=== PATIENT | male | born 1955 | race Caucasian/White ===

== ENCOUNTER 2022-06-26 07:30 | Outpatient (RCR) | payer MEDICARE, OTHER, SELFPAY | END 2023-06-17 23:59 | disposition home or self-care (01) | PROVIDERS: PCP Family Medicine; Visit Provider Family Medicine | DX: M77.11 Lateral epicondylitis, right elbow (principal); Z51.89 Encounter for other specified aftercare | CPT/HCPCS: 97035; 97140 ==

== ENCOUNTER 2023-02-11 07:30 | Outpatient (RCR) | payer MEDICARE, MEDICAID, SELFPAY | END 2023-03-24 14:40 | disposition home or self-care (01) | PROVIDERS: PCP Family Medicine; Visit Provider Orthopaedic Surgery | DX: M25.512 Pain in left shoulder (principal); Z51.89 Encounter for other specified aftercare | CPT/HCPCS: 97110; 97140; 97161 ==

== ENCOUNTER 2023-03-23 08:34 | Outpatient (CLI) | payer MEDICARE, SELFPAY | END 2023-03-23 08:35 | disposition home or self-care (01) | LOC: NFLDREF 22:11 | PROVIDERS: PCP Family Medicine; Referring Provider Family Medicine; Visit Provider Family Medicine | DX: I10 Essential (primary) hypertension (principal); E55.9 Vitamin D deficiency, unspecified; Z12.5 Encounter for screening for malignant neoplasm of prostate; Z13.6 Encounter for screening for cardiovascular disorders | CPT/HCPCS: 80048; 80061; 82306; 82652; 84153 ==

== ENCOUNTER 2024-02-28 09:30 | Emergency (ER) | payer MEDICARE, OTHER, SELFPAY ==
[2024-02-28 09:37] VITALS: BP 136/94; PULSE 66; RESP 18; TEMP 36.8; O2SAT 98; BMI 31.8
--- NOTE | 2024-02-28 10:17 | US_ITS ---
Patient: SU HA Facility:?[facility] Patient ID:?[id number] Site Patient ID:?[id number]. Site :?[id number] Study:?US-Abdomen RUQ-02/28/2024 10:51:25 AM Ordering Physician:ROSEANN HILL Final Report: INDICATION: Right upper quadrant abdomen pain TECHNIQUE: Ultrasound abdomen limited. Sonographic images of the right upper quadrant were obtained using betancur-scale and color Doppler images. COMPARISON: None FINDINGS: Liver: Diffusely increased in echogenicity without focal lesion. Gallbladder: No stones or sludge. Normal wall thickness. No pericholecystic fluid. Common bile duct: 4 mm. Pancreas: Normal. Right kidney: Normal in size. Normal echotexture and cortex. No masses, stones, or hydronephrosis. Vasculature: Proximal abdominal aorta and IVC are normal. IMPRESSION: 1. No evidence of cholelithiasis or cholecystitis. 2. Moderate hepatic steatosis. Dictated by Giovani Goldberg MD @ 02/28/2024 11:00:58 AM Signed by:?Giovani Goldberg MD @02/28/2024 11:00:58 AM (Electronic Signature)
--- NOTE | 2024-02-28 10:44 | ED.GENADULT ---
HPI - General Adult General Date Seen: 02/28/24 Chief complaint: Chest Pain Stated complaint: upper right chest pain Time Seen by Provider: 02/28/24 09:50 Source: patient, RN notes reviewed and old records reviewed Mode of arrival: ambulatory Limitations: no limitations History of Present Illness HPI narrative: Patient is a 68-year-old male with underlying medical history of obesity and high blood pressure as well as gastroesophageal reflux who presents with right lower chest/right upper quadrant pain which started on Wednesday. He says it has been on and off to some degree kind of waxing and waning but it has never been completely gone. He does feel like it hurts more when he lays on the right side also hurts more with eating. He has not had any nausea or vomiting, appetite has otherwise been normal. No constipation, diarrhea, black or bloody stools. He has been having trouble for the past few weeks with what he describes as ?dermatitis, has been seeing someone at [place] for that and was prescribed hydroxyzine as well as topical products which he says worked well but now he has a rash in his chest, he is wondering if this could all be celiac as he does have a family member who has been diagnosed with celiac. He denies any pleuritic pain, no shortness of breath, cough. No fevers. History of kidney stones but this does not feel similar. Related Data Home Medications Medication Instructions Recorded Confirmed clobetasol 0.05 % scalp solution topical 02/28/24 hydroxyzine HCl 25 mg tablet 25 mg PO QPM 02/28/24 02/28/24 ketoconazole 2 % shampoo 1 applic topical 3XW 02/28/24 02/28/24 omeprazole magnesium 10 mg oral 10 mg PO DAILY 02/28/24 02/28/24 suspension,delayed release (Prilosec) tacrolimus 0.1 % topical ointment topical BID 02/28/24 triamcinolone acetonide 0.1 % topical 02/28/24 topical ointment Previous Rx's Medication Instructions Recorded losartan 25 mg tablet 25 mg PO QDAY #90 tabs 02/02/24 Allergies Allergy/AdvReac Type Severity Reaction Status Date / Time lisinopril Allergy Mild Cough Verified 02/28/24 09:42 Review of Systems Status of ROS: Reports: 10 or more systems reviewed and unremarkable except as noted in History and below [facility] Medical History History of renal calculi ?Z87.442 - Personal history of urinary calculi (ICD-10) History of pleurisy ?Z87.09 - Personal history of other diseases of the respiratory system (ICD-10) History of Helicobacter pylori infection ?Z86.19 - Personal history of other infectious and parasitic diseases (ICD-10) History of echocardiography ?Z92.89 - Personal history of other medical treatment (ICD-10) Surgical History S/P nasal surgery ?Z98.890 - Other specified postprocedural states (ICD-10) History of hernia repair ?Z98.890 - Other specified postprocedural states (ICD-10) ?Z87.19 - Personal history of other diseases of the digestive system (ICD-10) History of cystoscopy ?Z98.890 - Other specified postprocedural states (ICD-10) History of colonoscopy ?Z98.890 - Other specified postprocedural states (ICD-10) Social History Smoking Status: Never smoker Do you use any of these nicotine containing products: None How often do you have a drink containing alcohol: never How often do you have six or more drinks on one occasion: Never AUDIT-C Alcohol total score: 0 Non-prescribed substance use: denies use Little interest or pleasure in doing things: not at all Feeling down, depressed, or hopeless: several days Exam Narrative: Exam Narrative: Vital signs as noted above. In general, an alert, well-appearing patient. Looks comfortable, breathing easily. Head: Normocephalic, atraumatic. Eyes: Pupils are equal reactive. Extraocular movements are full. Conjunctivae are normal. ENT: Mucous membranes are moist. Neck: Supple without lymphadenopathy. Heart: Regular rate and rhythm. No murmur or rub. Lungs: Clear bilaterally. No increased work of breathing, crackles or wheezes. Abdomen: Protuberant, soft. Mild right upper quadrant tenderness without rebound guarding or rigidity. Negative Rai sign. Abdomen otherwise nontender. Extremities: Well perfused. No edema. No calf tenderness. Pulses intact. Neurologic: Patient is alert and oriented to person and place. Speech is fluent. Face is symmetric. Moves all extremities equally. Affect: Normal. Skin: Warm and dry. Well perfused. Const: Vital Signs, click to edit/add: Vital Signs - 24 hr 02/28/24 09:37 02/28/24 11:47 Temperature 98.2 F Pulse Rate [Right Pulse Oximeter] 66 58 L Respiratory Rate 18 18 Blood Pressure [Ri ght Upper Arm] 136/94 H 147/92 H Pulse Oximetry 98 93 Oxygen Delivery Me thod Room Air Room Air Documenting provider has reviewed patient's vital signs: yes Course Course ED Course: Patient presents with mild right upper quadrant pain of a couple days duration without associated symptoms, fairly benign exam. Diagnostic considerations include biliary colic or cholecystitis, pancreatitis, hepatitis, pneumonia, pleural effusion, pulmonary embolism, angina or acute coronary syndrome among others. Overall, my clinical suspicion of most of these is relatively low. I did look with the bedside ultrasound, did not see evidence of gallbladder wall thickening or obvious gallstones. Will go ahead and get a formal ultrasound, labs to include troponin and D-dimer, chest x-ray. Labs are unremarkable, white blood cell count is normal, hemoglobin 15.7. Metabolic panel and LFTs notable only for mild elevations in the AST and ALT of 50 and 78 respectively. Alk-phos and bilirubin are normal. CRP is less than 0.5. Lipase is 132, point of care troponin 0. D-dimer normal. He did have an EKG on arrival which showed sinus bradycardia, ventricular rate of 52. No acute ST segment changes, normal T-waves. Chest x-ray by my review was negative. Final radiology read likewise negative. He had a formal right upper quadrant ultrasound, he has fatty liver but no other findings. Gallbladder looks normal. I have discussed all this with him. At this time I do not have a clear explanation for his pain. His exam is not concerning, evaluation here is all reassuring. Discussed that if symptoms are persistent it certainly would be reasonable to pursue evaluation for celiac, HIDA scan may also be reasonable. He has an appointment on the with primary care for recheck and this can be discussed at his visit. If he has acute worsening at any point come back to the ER. Vital Signs Vital signs: Initial Vital Signs Temperature 98.2 F 02/28/24 09:37 Temperature Source Temporal Artery Scan 02/28/24 09:37 Pulse Rate 66 02/28/24 09:37 Pulse Rhythm Regular 02/28/24 09:37 Respiratory Rate 18 02/28/24 09:37 Blood Pressure 136/94 H 02/28/24 09:37 Blood Pressure Mean 108 H 02/28/24 09:37 Blood Pressure Position Sitting 02/28/24 09:37 Pulse Oximetry 98 02/28/24 09:37 Oxygen Delivery Method Room Air 02/28/24 09:37 Vital Signs Temperature 98.2 F 02/28/24 09:37 Pulse Rate 66 02/28/24 09:37 Respiratory Rate 18 02/28/24 09:37 Blood Pressure 136/94 H 02/28/24 09:37 Pulse Oximetry 98 02/28/24 09:37 Oxygen Delivery Method Room Air 02/28/24 09:37 Temperature 98.2 F 02/28/24 09:37 Pulse Rate 58 L 02/28/24 11:47 Respiratory Rate 18 02/28/24 11:47 Blood Pressure 147/92 H 02/28/24 11:47 Pulse Oximetry 93 02/28/24 11:47 Oxygen Delivery Method Room Air 02/28/24 11:47 Medical Decision Making Lab Data Labs: Lab Results 02/28/24 02/28/24 02/28/24 Range/Units 10:17 10:57 11:12 WBC 5.87 (4.50-11.00) K/uL RBC 5.38 (4.30-5.90) m/uL Hgb 15.7 (13.5-17.5) gm/dL Hct 47.4 (37.0-53.0) % MCV 88 (80-100) fL MCH 29 (26-34) pg MCHC 33 (32-36) gm/dL RDW Coeff of [place] 12.0 (11.5-15.5) % Plt Count 181 (140-440) K/uL Neut % (Auto) 63.2 (42.0-72.0) % Lymph % (Auto) 22.1 (20-44) % [place] % (Auto) 9.4 (0.0-11.0) % Eos % (Auto) 4.6 (0.0-7.0) % Baso % (Auto) 0.5 (0.0-3.0) % Neut # (Auto) 3.71 (1.7-7.0) K/uL Lymph # (Auto) 1.30 (0.90-2.90) K/uL [place] # (Auto) 0.60 (0.00-0.90) K/UL Eos # (Auto) 0.27 (0.00-0.50) K/uL Baso # (Auto) 0.03 (0.00-0.30) K/uL Abs Immat Gran (auto) 0.01 (0.00-0.30) K/uL Imm/Tot Granulo (auto) 0.2 % D-Dimer Quant (PE/DVT) 0.39 (0.00-0.50) ug/ml Sodium 139 (135-149) mmol/L Potassium 4.5 (3.6-5.1) mmol/L Chloride 105 (96-114) mmol/L Carbon Dioxide 28 (20-32) mmol/L Anion Gap 6 L (7-15) mEq/L BUN 17 (7-30) mg/dL Creatinine 0.9 (0.5-1.5) mg/dL Estimated Creat Clear 60.02 Estimated GFR 94 ml/min Glucose 83 (60-115) mg/dL Calcium 9.6 (8.4-10.6) mg/dL Total Bilirubin 1.0 (0.1-1.5) mg/dL Direct Bilirubin 0.1 (0.0-0.5) mg/dL AST 50 H (12-35) U/L ALT 78 H (4-50) U/L Alkaline Phosphatase 77 (40-150) U/L C-Reactive Protein < 0.5 L (0.5-1.0) mg/dL Total Protein 8.6 H (6.0-8.3) g/dL Albumin 4.8 (3.3-5.0) g/dL Lipase 132 (23-300) U/L POC Troponin I 0.00 L (0.01-0.04) ng/ml Discharge Plan Discharge Clinical Impression: Abdominal pain, RUQ Patient Disposition: Home, Self-Care Condition: Stable Instructions: Abdominal Pain (ED) Additional Instructions: Your evaluation today does not reveal any evidence of obvious gallbladder disease, pancreatitis, blood clots, or other suspicious findings. Cause of your symptoms is unclear at this time. Return any time for severe pain, new symptoms such as high fevers, vomiting etcetera. Follow-up as planned with Dr. Smith on the . Consider celiac screening and HIDA scan if symptoms are persistent. Prescriptions: No Action ketoconazole 2 % shampoo 1 applic topical 3XW tacrolimus 0.1 % ointment topical BID triamcinolone acetonide 0.1 % ointment topical hydroxyzine HCl 25 mg tablet 25 mg PO QPM clobetasol 0.05 % solution topical Prilosec 10 mg susp,delayed release for recon 10 mg PO DAILY losartan 25 mg tablet 25 mg PO QDAY Qty: 90 0RF Follow Up/Referrals: César Smith MD [Primary Care Provider] - Stand Alone Forms: [employer] Info Instructions
[2024-02-28 11:10] LABS: Basophils Absolute Auto 0.03 K/uL (0.00-0.30); Basophils Percent Auto 0.5 % (0.0-3.0); Eosinophils Absolute Auto 0.27 K/uL (0.00-0.50); Eosinophils Percent Auto 4.6 % (0.0-7.0); Hematocrit 47.4 % (37.0-53.0); Hemoglobin* 15.7 gm/dL (13.5-17.5); Immature Granulocytes Abs Auto 0.01 K/uL (0.00-0.30); Immature Granulocytes Pct Auto 0.2 %; Lymphocytes Percent Auto 22.1 % (20-44); Mean Corpuscular HGB Conc 33 gm/dL (32-36); Mean Corpuscular Hemoglobin 29 pg (26-34); Mean Corpuscular Volume 88 fL (80-100); Monocytes Percent Auto 9.4 % (0.0-11.0); Neutrophils Absolute Auto 3.71 K/uL (1.7-7.0); Neutrophils Percent Auto 63.2 % (42.0-72.0); Platelet Count* 181 K/uL (140-440); Red Blood Count 5.38 m/uL (4.30-5.90); White Blood Count* 5.87 K/uL (4.50-11.00)
[2024-02-28 11:15] LABS: Slide Review Reflex No
[2024-02-28 11:23] LABS: Chloride* 105 mmol/L (96-114)
[2024-02-28 11:24] LABS: Albumin* 4.8 g/dL (3.3-5.0); Potassium* 4.5 mmol/L (3.6-5.1); Sodium* 139 mmol/L (135-149)
[2024-02-28 11:26] LABS: Creatinine* 0.9 mg/dL (0.5-1.5); Est. Creatinine Clearance* 60.02; Estimated Glomerular Filt Rate 94 ml/min
[2024-02-28 11:27] LABS: Alkaline Phosphatase* 77 U/L (40-150); Anion Gap 6 mEq/L (7-15); Aspartate Amino Transferase* 50 U/L (12-35); Bilirubin Direct* 0.1 mg/dL (0.0-0.5); Blood Urea Nitrogen* 17 mg/dL (7-30); Carbon Dioxide* 28 mmol/L (20-32); Glucose* 83 mg/dL (60-115); Lipase* 132 U/L (23-300); Total Protein* 8.6 g/dL (6.0-8.3)
[2024-02-28 11:28] LABS: Alanine Aminotransferase* 78 U/L (4-50); Calcium* 9.6 mg/dL (8.4-10.6)
[2024-02-28 11:44] LABS: D Dimer Quantitative* 0.39 ug/ml (0.00-0.50)
[2024-02-28 11:45] LABS: C Reactive Protein* < 0.5 mg/dL (0.5-1.0)
[2024-02-28 11:47] VITALS: BP 147/92; PULSE 58; RESP 18; O2SAT 93
--- NOTE | 2024-02-28 11:52 | XR_ITS ---
Patient: SU HA Facility:?[facility] Patient ID:?[id number] Site Patient ID:?[id number]. Site :?[id number] Study:?XRay-Chest PORTABLE-02/28/2024 12:09:27 PM Ordering Physician:WINIFRED Final Report: INDICATION: Right upper quadrant pain. TECHNIQUE: Chest 1 views. COMPARISON: None. FINDINGS: Cardiovascular and mediastinum: Heart size and vasculature are normal in caliber and appearance. Lungs and pleural spaces: Lungs are clear. No sign of infiltrate or mass. No sign of pleural effusion. No pneumothorax. Bones and soft tissues: No significant findings. IMPRESSION: No acute or significant findings. Dictated by Roel Holm MD @ 02/28/2024 12:19:45 PM Signed by:?Roel Holm MD @02/28/2024 12:19:45 PM (Electronic Signature)
== END 2024-02-28 12:31 | disposition home or self-care (01) ==
PROVIDERS: Emergency Provider Emergency Medicine; PCP Family Medicine
DX: R10.11 Right upper quadrant pain (principal)
CPT/HCPCS: 36415; 71045; 76705; 80048; 80076; 83690; 84484; 85025; 85379; 86140; 93005; 99284; 99285

== ENCOUNTER 2024-03-30 08:20 | Outpatient (CLI) | payer MEDICARE, OTHER, SELFPAY | END 2024-03-30 08:21 | disposition home or self-care (01) | LOC: NFLDREF 03-31 05:38 | PROVIDERS: PCP Family Medicine; Referring Provider Family Medicine; Visit Provider Family Medicine | DX: E78.5 Hyperlipidemia, unspecified (principal); E55.9 Vitamin D deficiency, unspecified; I10 Essential (primary) hypertension | CPT/HCPCS: 80053; 80061; 82306 ==

== ENCOUNTER 2025-04-17 08:22 | Outpatient (CLI) | payer MEDICARE, OTHER, SELFPAY | END 2025-04-17 08:23 | disposition home or self-care (01) | LOC: NFLDREF 04-25 01:33 | PROVIDERS: PCP Family Medicine; Referring Provider Family Medicine; Visit Provider Family Medicine | DX: E78.5 Hyperlipidemia, unspecified (principal) | CPT/HCPCS: 80053; 80061 ==

== ENCOUNTER 2025-04-24 11:41 | Outpatient (CLI) | payer MEDICARE, OTHER, SELFPAY ==
--- NOTE | 2025-04-24 12:00 | CRLHL7_ITS ---
For Patients: As a result of the 21st Century Cures Act, medical imaging exams and procedure reports are released immediately into your electronic medical record. You may view this report before your referring provider. If you have questions, please contact your health care provider. INDICATION: 69-year-old man with history of abdominal pain. TECHNIQUE: 8.0 MCi Tc 99m Mebrofenin were administered intravenously and serial static images were obtained over the anterior abdomen over 60 minutes, demonstrating radiotracer uptake within the gallbladder and demonstrating tracer exiting into the small bowel. A lateral image was obtained at 50 minutes. Subsequently, 1.6 Micrograms cholecystokinin was administered intravenously and the anterior abdomen was serially imaged with static views for another 30 minutes. COMPARISON: None FINDINGS: Initial 60 minutes images: There is normal radionuclide activity in the liver, common bile duct, gallbladder and small bowel. There is no evidence for cystic or common duct obstruction or intrinsic liver disease. After administration of cholecystokinin, minimal tracer is demonstrated exiting the gallbladder into the common bile duct and small bowel, with substantial residual tracer in the gallbladder. The gallbladder ejection fraction measures 25 %. Normal range for GB EF: Equal to or greater than 35%. IMPRESSION: 1. No evidence of cystic duct obstruction to support acute cholecystitis. No evidence of common bile duct obstruction. 2. Gallbladder ejection fraction measures 25 %, below normal limits. Findings are nonspecific, but can be seen with gallbladder dysfunction. Dictated by Radames Alejandre MD @ 04/24/2025 3:10:24 PM (Electronically Signed)
== END 2025-04-24 11:42 | disposition home or self-care (01) ==
PROVIDERS: PCP Family Medicine; Visit Provider Family Medicine
DX: R10.11 Right upper quadrant pain (principal)
CPT/HCPCS: 78227; A9537; J2805

== ENCOUNTER 2025-05-07 06:13 | Day surgery (SDC) | payer MEDICARE, OTHER, SELFPAY ==
[2025-05-07] VITALS (12 sets, daily range): BP systolic 108–132; BP diastolic 67–81; PULSE 39–56; RESP 12–18; TEMP 36.2–36.4; O2SAT 96–100; BMI 30.7
[2025-05-07] MEDS: SODIUM CHLORIDE 0.9 % (FLUSH) 10 ML SYRINGE IVF (06:40)
[2025-05-07] MEDS: LACTATED RINGERS 1000 ML 1,000 ML 100 ML IV (06:40)
--- NOTE | 2025-05-07 07:33 | W.PM.H&PU ---
History & Physical Update History & Physical Update H&P Reviewed and patient assessed: No changes noted
[2025-05-07] MEDS: CEFAZOLIN 1 GM inj IVP (07:40)
[2025-05-07] MEDS: BUPIVACAINE 0.25% 30 ML INJECTION (08:25)
--- NOTE | 2025-05-07 08:30 | PM.GSPRC ---
Operative Note Date of procedure: 05/07/25 Pre-op diagnosis: Biliary dyskinesia Post-op diagnosis: Same Type of Procedure: Laparoscopic cholecystectomy Indications: The patient is a 69-year-old male who presented to clinic with increasing episodes of right upper quadrant pain. Workup revealed no evidence of gallstones, however he did have a HIDA scan with a decreased ejection fraction of 25%. We discussed options for management and I recommended cholecystectomy. After discussion of risks, benefits and recovery, he agreed to proceed. Procedure Description: After discussing the risks and benefits of the procedure, the patient signed informed consent.? The operative site was marked and the patient was brought to the operating room and placed on the operating table in supine position.? Care was taken to pad the patient's pressure points.?? The patient was then intubated by anesthesia.?? The operative site was then prepped and draped in the usual sterile fashion.? A time-out was then performed. Entrance to the abdomen was gained via a 5 mm Visiport in the left upper quadrant. The abdomen was insufflated and briefly surveyed for signs of injury. There was none. A 10 mm umbilical port was placed as well as 2 working ports along the right costal margin, all under direct vision. The patient was then placed in reverse Trendelenburg position with the right side up. The gallbladder fundus was grasped and retracted cephalad. [A small amount of dissection was needed to free omental adhesions from the gallbladder.] The infundibulum was grasped. A combination of hook cautery and blunt dissection was used to carefully dissect out the cystic duct and artery until they could clearly be seen entering the gallbladder without any intervening structures. The gallbladder was dissected off the cystic plate to achieve the critical view. Once this was achieved, the cystic duct and artery were each clipped with 2 clips proximally and 1 clip distally and transected with the scissors. The gallbladder was then taken off of the liver bed and removed from the abdomen using an Endo-Catch bag. The gallbladder bed was surveyed for hemostasis which appeared adequate. The ports were then removed and the abdomen desufflated. The umbilical port fascia was closed with 0 Vicryl. The skin was closed with absorbable subcuticular suture. Sterile dressings were then applied. Instrument sponge and needle counts were correct at the end of the case. The patient was then woken and transferred to the PACU in stable condition. ? The patient tolerated the procedure well. Findings: No unusual findings Surgeon: Katarzyna Hudson MD Estimated blood loss (mL): 5 Specimen: Gallbladder Condition: stable Disposition: PACU
--- NOTE | 2025-05-07 08:50 | P.ANES_ITS ---
Anesthesia Charges Start Date/Time Anesthesia Start Date: 05/07/25 Anesthesia Start Time: 07:30 Stop Date/Time Anesthesia Stop Date: 05/07/25 Anesthesia Stop Time: 08:48 Coding CPT Codes CPT Codes: ANESTH SURG UPPER ABDOMEN - 45897 ([id number]) P2 - PATIENT W/MILD SYST DISEASE, QK - CLIENT ASSOCIATE 2-4 CNCRNT ANES PROC, QX - GEAR ROOM KEEPER SVC W/ MD MED DIRECTION
--- NOTE | 2025-05-07 08:50 | W.ANESCHARGE ---
Anesthesia Charges Start Date/Time Anesthesia Start Date: 05/07/25 Anesthesia Start Time: 07:30 Stop Date/Time Anesthesia Stop Date: 05/07/25 Anesthesia Stop Time: 08:48 Coding CPT Codes CPT Codes: ANESTH SURG UPPER ABDOMEN - 02115 ([id number]) P2 - PATIENT W/MILD SYST DISEASE, QK - STEAMTABLE ATTENDANT RAILROAD 2-4 CNCRNT ANES PROC, QX - SALES AND DISTRIBUTION CLERK SVC W/ MD MED DIRECTION
--- NOTE | 2025-05-07 09:01 | P.ANES_ITS ---
Anesthesia Charges Start Date/Time Anesthesia Start Date: 05/07/25 Anesthesia Start Time: 07:30 Stop Date/Time Anesthesia Stop Date: 05/07/25 Anesthesia Stop Time: 08:48 Coding CPT Codes CPT Codes: ANESTH SURG UPPER ABDOMEN - 77665 ([id number]) QK - L TACKER 2-4 CNCRNT ANES PROC, QX - INTERNATIONAL TAX MANAGER SVC W/ MD MED DIRECTION, P2 - PATIENT W/MILD SYST DISEASE
--- NOTE | 2025-05-07 09:01 | W.ANESCHARGE ---
Anesthesia Charges Start Date/Time Anesthesia Start Date: 05/07/25 Anesthesia Start Time: 07:30 Stop Date/Time Anesthesia Stop Date: 05/07/25 Anesthesia Stop Time: 08:48 Coding CPT Codes CPT Codes: ANESTH SURG UPPER ABDOMEN - 48992 ([id number]) QK - YARD HAND 2-4 CNCRNT ANES PROC, QX - APPLICATION SYSTEMS ADMINISTRATOR SVC W/ MD MED DIRECTION, P2 - PATIENT W/MILD SYST DISEASE
--- NOTE | 2025-05-07 09:21 | SUR.PHASEI ---
patient met discharge criteria per anesthesia
== END 2025-05-07 10:18 | disposition home or self-care (01) ==
PROVIDERS: PCP Family Medicine; Visit Provider Surgery
PROC: 0FT44ZZ Resection of Gallbladder, Percutaneous Endoscopic Approach (ICD-10-PCS; CPT 47562; principal; 2025-05-07 07:30)
DX: K81.1 Chronic cholecystitis (principal); K82.8 Other specified diseases of gallbladder
CPT/HCPCS: 47562; 00790; 88304; J0665; J0690; J1100; J1885; J2250; J2405; J2704; J2710; J3010; J7120

== ENCOUNTER 2025-08-20 08:25 | Outpatient (CLI) | payer MEDICARE, SELFPAY | END 2025-08-20 08:26 | disposition home or self-care (01) | LOC: NFLDREF 08-29 04:23 | PROVIDERS: PCP Family Medicine; Referring Provider Family Medicine; Visit Provider Family Medicine | DX: E78.5 Hyperlipidemia, unspecified (principal) | CPT/HCPCS: 80061; 84450; 84460 ==